=== PATIENT | male | born 1990 | race Caucasian/White ===

== ENCOUNTER → 2016-03-15 | Outpatient (CLI) | payer MEDICAID ==
--- NOTE | 2016-03-15 11:14 | MR ---
MRI Pelvis Without Contrast History: Left groin pain. Evaluate for sports hernia. No significant improvement with 6 weeks of cons ervative treatment. Technique: MRI was performed of the pelvis using a 3 [id number] MRI system. Sagittal, coronal, axial, and oblique axial imaging was obtained with standard imaging sequences. Field of view was optimized to ev aluate for athletic pubalgia. Findings: There is mild bone marrow edema and cortical irregularity at the symphysis pubis bilaterall y. This is a little more predominant on the left than the right. There is mild edema and attenuation at the adductor tendon insertion to the symphysis pubis on the left and mild attenuation and upliftin g of the adductor aponeurosis. The rectus abdominal tendon insertion to the symphysis pubis is unrema rkable. The other visualized musculature and tendons are unremarkable. Subcortical cyst is seen in th e femoral head neck junction of the left hip. Small subcortical cyst and cartilage thinning is seen i n the superior acetabulum on the right. No evidence for avascular necrosis of the femoral head or str ess fracture of the femoral neck. No evidence for sacroiliitis. Impression: 1. Partial tear at the adductor tendon insertion of the left symphysis pubis and adductor aponeurosis . Mild osteitis pubis. 2. Question mild early degenerative change right hip. Subcortical cyst at the femoral head neck junct ion left hip.
== END ==
LOC: FIMAGING 09:45
PROVIDERS: ATTEND Family Medicine
DX: S33.8XXA Sprain of other parts of lumbar spine and pelvis, initial encounter (principal); X58.XXXA Exposure to other specified factors, initial encounter; M85.38 Osteitis condensans, other site; M24.852 Other specific joint derangements of left hip, not elsewhere classified